=== PATIENT | female | born 1975 | race Caucasian/White ===

== ENCOUNTER → 2018-01-10 | Outpatient (CLI) | payer BC ==
--- NOTE | 2018-01-12 10:09 | MM ---
Reason for exam: screening (asymptomatic). Last mammogram was performed 3 years ago. History: Patient has history of other cancer at age 36 and is nulliparous. Taking hormonal contraceptives for 5 years. Physical Findings: A clinical breast exam by your physician is recommended on an annual basis and results should be correlated with mammographic findings. MG 3D Screening Mammo W/Cad Bilateral CC and MLO view(s) were taken. Prior study comparison: January 15, 2015, bilateral MG diagnostic mammo w CAD [facility]AB[facility]INA. July 03, 2014, right breast MG diagnostic mammo RT w CAD. There are scattered fibroglandular densities. There is chronic nodularity in the left breast. No significant changes when compared with prior studies. ASSESSMENT: Negative, BI-RAD 1 RECOMMENDATION: Routine screening mammogram of both breasts in 1 year.
== END | disposition home or self-care (01) ==
LOC: RADMAMWWP 13:54
PROVIDERS: ATTEND Family Medicine
DX: Z12.31 Encounter for screening mammogram for malignant neoplasm of breast (principal)
CPT/HCPCS: 77063; 77067

== ENCOUNTER → 2020-11-04 | Outpatient (CLI) | payer BC ==
--- NOTE | 2020-11-05 10:12 | MM ---
Reason for exam: screening (asymptomatic). Last mammogram was performed 2 years and 10 months ago. History: Patient has history of other cancer at age 40 and is nulliparous. Took hormonal contraceptives for 5 years. Physical Findings: A clinical breast exam by your physician is recommended on an annual basis and results should be correlated with mammographic findings. MG 3D Screening Mammo W/Cad Bilateral CC and MLO view(s) were taken. Prior study comparison: January 10, 2018, bilateral MG 3d screening mammo w/cad. January 15, 2015, bilateral MG diagnostic mammo w CAD ZABRINA. There are scattered fibroglandular densities. ASSESSMENT: Negative, BI-RAD 1 RECOMMENDATION: Routine screening mammogram of both breasts in 1 year.
== END | disposition home or self-care (01) ==
LOC: RADMAMWWP 09:21
PROVIDERS: ATTEND Family Medicine
DX: Z12.31 Encounter for screening mammogram for malignant neoplasm of breast (principal)
CPT/HCPCS: 77063; 77067

== ENCOUNTER → 2022-04-25 | Outpatient (CLI) | payer BC ==
[2022-04-25 16:15] LABS: Basophils # (A) 0.04 X 10*3/uL (0.00-0.10); Basophils % (A) 0.5 %; Eosinophils # (A) 0.03 X 10*3/uL (0.04-0.35); Eosinophils % (A) 0.4 %; HCT 40.8 % (37.2-46.3); Immature Grans, Automated 0.1 %; Lymphocytes # (A) 1.62 X 10*3/uL (0.90-5.00); Lymphocytes % (A) 19.1 %; MCH 27.5 pg (27.0-32.0); MCHC 31.9 g/dL (32.0-37.0); MCV 86.3 fL (80.0-97.0); Mean Platelet Volume 11.5 fL (9.5-12.2); Monocytes # (A) 0.58 X 10*3/uL (0.20-1.00); Monocytes % (A) 6.8 %; NRBC Per 100 WBC 0 /100 WBCS (0.0-0.0); Neutrophils % (A) 73.1 %; Platelet Count 276 X 10*3/uL (140-440); RBC 4.73 X 10*6/uL (4.10-5.20); RDW 13.1 % (11.5-14.5); WBC 8.48 X 10*3/uL (4.50-10.00)
== END | disposition home or self-care (01) ==
LOC: LABPAT 09:14
PROVIDERS: ATTEND Obstetrics & Gynecology
DX: Z01.818 Encounter for other preprocedural examination (principal); I10 Essential (primary) hypertension; N92.0 Excessive and frequent menstruation with regular cycle
CPT/HCPCS: 85025; 93005

== ENCOUNTER 2022-05-05 09:02 | Day surgery (SDC) | payer BC ==
[~2022-05-05 09:02] MED LIST: LACTATED RINGERS 1,000 ML IV SCH; LIDOCAINE 1% (10MG/ML) FOR IV START INTRADERMA PRN; ONDANSETRON 4 MG/2 ML VIAL IVP PRN; Pre Op ABX Message 1 EACH MISC MISCELLANE ONE
[2022-05-05 10:04] LABS: Glucose,Whole Blood 97 mg/dL (70-110)
[2022-05-05] MEDS ORDERED: DEXAMETHASONE SOD PHOSPHATE 4 MG/ML 1 ML VIAL IVP ONE (10:08)
[2022-05-05] MEDS ORDERED: LIDOCAINE 2% INJ 20 MG/ML (2 ML VIAL) ONE (12:29)
[2022-05-05] MEDS ORDERED: fentaNYL (PF) 50 MCG/ML 2 ML AMP ONE (12:29)
[2022-05-05] MEDS ORDERED: MIDAZOLAM 2 MG/2 ML VIAL ONE (12:29)
[2022-05-05] MEDS ORDERED: KETOROLAC 15 MG/ML 1 ML VIAL ONE (12:29)
[2022-05-05] MEDS ORDERED: PROPOFOL 10 MG/ML 20 ML VIAL IV ONE (12:29)
[2022-05-05] MEDS ORDERED: diphenhydrAMINE 50 MG/ML 1 ML VIAL IVP PRN (13:10)
[2022-05-05] MEDS ORDERED: ONDANSETRON 4 MG/2 ML VIAL IVP PRN (13:10)
[2022-05-05] MEDS ORDERED: Acetaminophen-Codeine 300-30mg TAB PO PRN ×2 (13:10)
[2022-05-05] MEDS ORDERED: IBUPROFEN 600 MG TAB PO PRN (13:10)
[2022-05-05] MEDS ORDERED: METOCLOPRAMIDE 5 MG/ML 2 ML VIAL IVP PRN (13:10)
[2022-05-05] MEDS ORDERED: KETOROLAC 15 MG/ML 1 ML VIAL IVP PRN (13:10)
[2022-05-05] MEDS ORDERED: SIMETHICONE 80 MG CHEWABLE PO PRN (13:10)
[2022-05-05] MEDS ORDERED: LACTATED RINGERS 1,000 ML IV SCH (13:15)
--- NOTE | 2022-05-05 13:16 | P.OP ---
Date of Procedure: 05/05/22 Preoperative Diagnosis: #1. Menorrhagia Postoperative Diagnosis: Same Procedure(s) Performed: #1. Diagnostic hysteroscopy #2. NovaSure endometrial ablation Anesthesia: other (Gen. by LMA) Surgeon: Carlo Saavedra Estimated Blood Loss (ml): 5 IV fluids (ml): 300 Urine output (ml): 100 Pathology: none sent Condition: stable Disposition: PACU Operative Findings: Preoperative pelvic examination demonstrated a roughly 5 week slightly retroverted mobile shaped uterus with normal adnexa bilaterally. Intraoperatively, the uterus sounded to approximately 9 cm with a cervical length of approximately 3 and half centimeters. Using hysteroscope, there was no obvious pathology seen viewing was difficult as there was some blood admixed with the normal saline used to distend the cavity. The settings for the NovaSure tool where a length of 5.5 cm, a width of 4.8 cm for a total power 148 W. Total run time of 66 seconds, the base unit read "procedure complete." The postprocedural result appeared to be excellent. The patient is a poor candidate for vaginal hysterectomy should become necessary in the future. Description of Procedure: The patient was prepped and draped in usual fashion after general anesthesia was administered by the anesthesiologist. A weighted speculum was placed and the bladder draining approximately 100 mL of clear tonia urine. The anterior lip of the cervix was grasped with single-tooth tenaculum and uterus sounded to 9 cm with a cervical length of approximately 3.5 cm. Serial dilation was carried out to admit the diagnostic hysteroscope which was placed in the cavity and distended with normal saline. There was a moderate amount of blood in the fluid making hysteroscopy less than expected. Nevertheless the tubal ostia areas were seen and there did not appear to be any pathology present. The scope was then set aside and the NovaSure tool introduced into the endometrial cavity, opened, and seated well the settings for the tool were a length of 5.5 cm, a width of 4.8 cm and a total power of 148 W. The cavity check was attempted and passed without difficulty. The tool was enabled and the run was started. After a run time of 66 seconds, the base unit read "procedure complete." The tool was closed, removed, and discarded. The hysteroscope was reintroduced into the cavity and the result appeared to be excellent. All instrumentation was then removed. There was no ongoing bleeding from either the cervix or the tenaculum site. Estimated blood loss for the case was less than 5 mL. There were no complications. All sponge, instrument, needle counts were correct. The patient tolerated the procedure well and proceeded to the recovery room in stable condition.
[2022-05-05 13:19] VITALS: TEMP 97.7
[2022-05-05] MEDS: HYDROmorphone 0.5 MG/0.5 ML SYRINGE IVP PRN ×2 (13:23→13:48)
[2022-05-05 15:02] VITALS: RESP 16
[2022-05-05 15:28] VITALS: BP 173/95; PULSE 83
== END 2022-05-05 16:05 | disposition home or self-care (01) ==
LOC: OR 09:02
PROVIDERS: ATTEND Obstetrics & Gynecology
DX: N92.0 Excessive and frequent menstruation with regular cycle (principal); I10 Essential (primary) hypertension; E78.5 Hyperlipidemia, unspecified; E11.9 Type 2 diabetes mellitus without complications; Z83.3 Family history of diabetes mellitus; Z80.42 Family history of malignant neoplasm of prostate; Z80.41 Family history of malignant neoplasm of ovary; Z79.02 Long term (current) use of antithrombotics/antiplatelets; Z79.52 Long term (current) use of systemic steroids; Z79.84 Long term (current) use of oral hypoglycemic drugs; Z79.899 Other long term (current) drug therapy
CPT/HCPCS: 58563; J1100; J2405; J1170; 81025

== ENCOUNTER → 2024-01-26 | Outpatient (CLI) | payer BC ==
--- NOTE | 2024-01-27 14:19 | MM ---
Reason for Exam: Screening (asymptomatic). Last mammogram was performed 3 year(s) and 3 month(s) ago. Patient History: Menarche at age 15. Patient has no children. Other cancer, age 40. Patient used Hormonal Contraceptives for 5 years. Last menstrual period: 01/09/2024 Risk Values: Jayshree 5 year model risk: 0.9%. NCI Lifetime model risk: 10.5%. Prior Study Comparison: 01/15/2015 Bilateral Diagnostic Mammogram, [facility]. 01/10/2018 Bilateral Screening Mammogram, [facility]. 11/04/2020 Bilateral Screening Mammogram, [facility]. Tissue Density: The breasts are heterogeneously dense, which may obscure small masses. Findings: Analyzed By CAD. There is no suspicious group of microcalcifications or new suspicious mass in either breast. Overall Assessment: Negative, BI-RAD 1 Management: Screening Mammogram of both breasts in 1 year. . Patient should continue monthly self-breast exams. A clinical breast exam by your physician is recommended on an annual basis. This exam should not preclude additional follow-up of suspicious palpable abnormalities. Note on Jayshree scores and lifetime risk: 1. A Jayshree score greater than 3% is considered moderate risk. If this is the case, consider specialist referral to assess eligibility for a risk reducing agent. 2. If overall lifetime risk for the development of breast cancer is 20% or higher, the patient may qualify for future screening with alternating mammogram and breast MRI. Electronically signed and approved by: Cruz Cleary M.D. Radiologis
== END | disposition home or self-care (01) ==
LOC: RADMAMWWP 15:44
PROVIDERS: ATTEND Family Medicine
DX: Z12.31 Encounter for screening mammogram for malignant neoplasm of breast
CPT/HCPCS: 77063; 77067

== ENCOUNTER → 2024-05-02 | Outpatient (CLI) | payer BC ==
--- NOTE | 2024-05-02 15:32 | US ---
EXAMINATION TYPE: US carotid duplex BILAT DATE OF EXAM: 05/02/2024 COMPARISON: NONE CLINICAL INDICATION: Female, 49 years old with history of Z91.89 OTH PERSONAL RISK FACTORS; CVD dizzi ness Additional History: R42* Dizziness TECHNIQUE: Grayscale, color Doppler and spectral Doppler evaluation of the bilateral carotid systems and vertebral arteries. Indirect Doppler criteria was utilized. FINDINGS: EXAM MEASUREMENTS: RIGHT: Peak Systolic Velocity (PSV) cm/sec ----- Right CCA: 95.5 ----- Right ICA: 114 ----- Right ECA: 102 ICA/CCA ratio: 1.2 RIGHT: End Diastole cm/sec ----- Right CCA: 31.2 ----- Right ICA: 46.8 ----- Right ECA: 23.4 LEFT: Peak Systolic Velocity (PSV) cm/sec ----- Left CCA: 89.6 ----- Left ICA: 114 ----- Left ECA: 72.1 ICA/CCA ratio: 1.3 LEFT: End Diastole cm/sec ----- Left CCA: 31.2 ----- Left ICA: 45.5 ----- Left ECA: 6.5 VERTEBRALS (direction of flow): Right Vertebral: Antegrade Left Vertebral: Antegrade Rhythm: Normal ACUTE COORDINATOR NOTES: No significant stenosis seen Color Doppler imaging shows patency with blood flow throughout the carotid artery. Spectral waveforms are within normal limits. IMPRESSION: Right: No hemodynamically significant stenosis. Left: No hemodynamically significant stenosis. Criteria for Assigning % of Stenosis / Diameter reduction (Estimation based on the indirect measurements of the internal carotid artery velocities (ICA PSV). 1. Normal (no stenosis)=ICA PSV < 125 cm/s: ratio < 2.0: ICA EDV<40 cm/s. 2. Less than 50% stenosis=ICA PSV < 125 cm/s: ratio < 2.0: ICA EDV<40 cm/s. 3. 50 to 69% stenosis=ICA PSV of 125 to 230 cm/s: ration 2.0 ? 4.0: ICA EDV 40-100 cm/s. 4. Greater than 70% stenosis to near occlusion= ICA PSV > 230 cm/s: ratio > 4.0: ICA EDV > 100 cm/s. 5. Near occlusion= ICA PSV velocities may be low or undetectable: variable ratio and ICA EDV. 6. Total occlusion=unable to detect flow. [facility], , 05/02/2024 3:30 PM
== END | disposition home or self-care (01) ==
LOC: RADUSWWP 14:58
PROVIDERS: ATTEND Family Medicine
DX: R42 Dizziness and giddiness (principal); Z91.89 Other specified personal risk factors, not elsewhere classified
CPT/HCPCS: 93880

== ENCOUNTER → 2024-05-18 | Outpatient (CLI) | payer BC ==
--- NOTE | 2024-05-18 11:49 | US ---
EXAMINATION TYPE: US abdomen complete DATE OF EXAM: 05/18/2024 COMPARISON: NONE CLINICAL INDICATION: Female, 49 years old with history of R10.9 UNSPECIFIED ABDOMINAL PAIN; TECHNIQUE: Grayscale and color Doppler imaging of the abdomen was performed. FINDINGS: EXAM MEASUREMENTS: Liver Length: 16.5 cm Gallbladder Wall: 0.2 cm CBD: 0.3 cm, color Doppler imaging was utilized to isolate the common bile duct for measurement. 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 echogenic foci with shadow within anterior wall Evidence for sonographic Peguero's sign: No CBD: wnl Spleen: wnl Right Kidney: No hydronephrosis or masses seen Left Kidney: No hydronephrosis or masses seen Upper IVC: partially visualized, prox: wnl Abd Aorta: partially visualized, wnl areas seen Area in RUQ seen: Appears to be dilated stomach The visualized portions of the pancreas unremarkable. The liver is heterogenous with increased echoge nicity. Noncirrhotic morphology. No focal lesion. No cholelithiasis. Echogenic foci within the wall w ith comet tail artifact demonstrated. No wall thickening or surrounding fluid. Negative sonographic M urphy's sign. Common bile duct is within normal limits. Spleen is within normal limits. No hydronephr osis, shadowing catheter as, or solid renal mass. The visualized portions of the upper IVC and abdomi nal aorta within normal limits. IMPRESSION: 1. No ultrasound evidence for acute abdominal process. 2. Gallbladder adenomyomatosis. 3. Hepatic steatosis. [facility], , 05/18/2024 11:47 AM
--- NOTE | 2024-05-18 11:51 | US ---
EXAMINATION TYPE: US pelvic complete DATE OF EXAM: 05/18/2024 COMPARISON: NONE CLINICAL INDICATION: Female, 49 years old with history of R10.9 UNSPECIFIED ABDOMINAL PAIN; TECHNIQUE: Transabdominal (TA). Transabdominal grayscale sonographic images of the pelvis were acquired. Transvaginal sonographic im ages were medically necessary to better assess the following anatomy: Doppler imaging: Not performed. FINDINGS: EXAM MEASUREMENTS: Uterus: 8.9x3.9x5.9 cm Endometrial Stripe: 0.5 cm Right Ovary: 4.3x2.2x2.2 cm Left Ovary: 3.2x1.8x2.1 cm 1. Uterus: Anteverted Hypoechoic area visualized: 2.0x1.3x2.2cm 2. Endometrium: wnl 3. Right Ovary: ?anechoic area:1.8x1.2x1.7cm 4. Left Ovary: wnl 5. Bilateral Adnexa: wnl 6. Posterior cul-de-sac: wnl Anteverted uterus with a hypoechoic 2.2 cm lesion within the anterior uterine fundus. Consistent with a subserosal fibroid. Endometrium is within normal limits. Right ovarian follicle. Otherwise unremar kable. Left ovary is unremarkable. No free fluid. IMPRESSION: Fibroid changes of the uterus. [facility], , 05/18/2024 11:48 AM
== END | disposition home or self-care (01) ==
LOC: RADUSWWP 06:52
PROVIDERS: ATTEND Family Medicine
DX: K76.0 Fatty (change of) liver, not elsewhere classified (principal); D25.9 Leiomyoma of uterus, unspecified; K82.8 Other specified diseases of gallbladder
CPT/HCPCS: 76700; 76856

== ENCOUNTER → 2024-05-24 | Outpatient (CLI) | payer BC ==
[~2024-05-24] MED LIST changes: -LACTATED RINGERS 1,000 ML IV SCH; -LIDOCAINE 1% (10MG/ML) FOR IV START INTRADERMA PRN; -ONDANSETRON 4 MG/2 ML VIAL IVP PRN; -Pre Op ABX Message 1 EACH MISC MISCELLANE ONE; +REGADENOSON 0.4 MG/5 ML SYRINGE IV PRN
--- NOTE | 2024-05-24 12:06 | CA ---
Lexiscan Nuclear Stress Test Report Name: Alisson Emmanuel Exam Date: 05/24/2024 10:55 Exam Location: [place] Stress Ht (in): 62 Wt (lb): 220 BSA: 1.99 Ordering Phys: Chemo Thrasher MD Referring Phys: Michelle Michaels [facility] Technologist: Rick Oneil Age: 49 Gender: F : 1975 Procedure CPT: Indications: Z91.89 OTH PERSONAL RISK FACTORS ICD-10 Codes: Patient History: Medications: ATORVASTATIN, LISINOPRIL, PROPANOLOL, Meds past 24 hrs: Pretest Chest Pain: STRESS TEST Lexiscan Protocol Exercise Duration (min:sec): 02:[address] Depressions (mm): Angina Score: Díaz Score: Resting HR (bpm): 78 Peak HR (bpm): 117 Resting BP (mmHg): 145 / 78 Peak BP (mmHg): 131 / 80 MPHR: 173 Target HR: 147 % MPHR: 68 METS: 1.0 Total Dose: Peak Dose: Atropine: Double Product: 93561 BP Response: Stress Termination: INFUSION COMPLETE Stress Symptoms: NO SYMPTOMS Stress Summary: ECG ANALYSIS Resting ECG: Stress ECG: CONCLUSIONS RESTING EKG: [Normal sinus rhythm, normal EKG] , Heart rate 82 BPM Patient recieved IV infusion of Lexiscan 0.4mg and at peak infusion STRESS EKG showed: [No significant ST-T wave changes diagnostic for ischemia by ST segment analysis] ARRYTHMIAS: [No ectopic rhythms or sustained arrythmias] CONCLUSION: 1. Normal hemodynamic and clinical response to Lexiscan infusion. 2. Non-ischemic EKG response to lexiscan infusion Please refer to the nuclear imaging portion of this stress test for complete interpretation of the study. Dr Mehdi Rousseau (Electronically Signed) Final Date: 24 May 2024 12:05
--- NOTE | 2024-05-24 12:58 | NM ---
EXAMINATION TYPE: NM stress lexiscan cardiolite DATE OF EXAM: 05/24/2024 COMPARISON: NONE CLINICAL INDICATION: Female, 49 years old with history of Z91.89 [facility] PERSONAL RISK FACTORS; TECHNIQUE: After the intravenous administration of 10.0 mCi Tc 99m Sestamibi - Cardiolite resting SP ECT images acquired 45 minutes post injection. The patient received 0.4mg Lexiscan, 25.9 mCi Tc 99m Sestamibi - Stress images obtained [address] injection FINDINGS: Review of stress and rest SPECT images demonstrates prominent GI activity adjacent to the inferior wa ll. There is a fixed defect along the mid to apical anteroseptal wall. A defect along the mid lateral wall is seen only on rest suggesting attenuation artifact. No distinct reversibility is seen. Gated analysis shows normal wall motion with an estimated left ventricular ejection fraction of 64 %. TID is calculated at 0.64, within normal limits. IMPRESSION: 1. Possible old infarct involving the mid to apical anteroseptal wall. Correlate with EKG testing to exclude attenuation artifact. Additional findings suggest attenuation artifact along the mid lateral wall. 2. No scintigraphic evidence for reversible ischemia. [facility], , 05/24/2024 12:56 PM
== END | disposition home or self-care (01) ==
LOC: RADNMMAIN 08:22
PROVIDERS: ATTEND Family Medicine
DX: R07.9 Chest pain, unspecified (principal); Z91.89 Other specified personal risk factors, not elsewhere classified
CPT/HCPCS: 93017; 78452; A9500; J2785